=== PATIENT | female | born 1950 | race Caucasian/White ===

== ENCOUNTER 2021-08-17 14:10 | Emergency (ER) | payer OTHER, SELFPAY ==
[2021-08-17 14:37] VITALS: BP 136/92; PULSE 81; RESP 17; TEMP 36.6; O2SAT 98; BMI 26.6
--- NOTE | 2021-08-17 14:46 | DI.US.S_ITS ---
PROCEDURE: US PERIPH VENOUS LOW EXTREM RT INDICATIONS: RT LEG PAIN TECHNIQUE: Real-time imaging, as well as color and pulse Doppler interrogation, were performed of the lower extremity deep veins from the inguinal ligament to the popliteal fossa. COMPARISON: None. FINDINGS: The common femoral, femoral and popliteal veins are normally compressible, and free of intraluminal thrombus. Color and pulse Doppler demonstrate normal phasic intraluminal flow. There is normal augmentation response to distal compression maneuver. Additional, dedicated ultrasound scanning is performed at the area of palpable abnormality involving the right popliteal fossa. No focal ultrasound abnormalities are seen within this region. IMPRESSION: Negative for deep venous thrombosis. No ultrasound abnormalities can be seen within the palpable region within the right popliteal fossa. Dictated by: Kenneth Dumont M.D. on 08/17/2021 at 14:50 Approved by: Kenneth Dumont M.D. on 08/17/2021 at 14:50
--- NOTE | 2021-08-17 20:23 | ED.LOWEXIN ---
HPI - Extremity Injury (Lower) <DAYNA Ceballos - Last Filed: 08/17/21 20:30> General Chief Complaint: Extremity Injury, Lower Stated Complaint: RIGHT KNEEE SWELLING WARM ACHES KNOT Time Seen by Provider: 08/17/21 15:56 Source: patient Mode of arrival: Ambulatory History of Present Illness HPI Narrative: This is a 71-year-old female who is visiting [facility] from [place], and has been walking frequently and today complains of posterior right knee pain since she arrived and she is concerned about a possible DVT due to her long flight, and sensation of feeling like her right knee is swollen. She states that she does have a history of some degenerative joint disease, it has never slowed her down she says. She states that she had a meniscal surgery a few years ago and this knee pain has improved since. She states that most of her pain is in the posterior of her right knee, denies any tenderness to palpation of her right knee, states it is more painful when walking on it and it feels stiff and swollen. She denies any fever, chills, sensation changes, she denies any rash, or open wound. Patient denies any history of blood clots, she is not on any anticoagulants, she states that she is active and has been on her trip so far. Related Data Home Medications Medication Instructions Recorded Confirmed levothyroxine 125 mcg capsule 125 mcg PO 08/17/21 Previous Rx's Medication Instructions Recorded diclofenac sodium 1 % topical gel 2 g TOPICAL QID PRN #100 g 08/17/21 (Voltaren Arthritis Pain) meloxicam 7.5 mg tablet (Mobic) 7.5 mg PO DAILY PRN #20 tab 08/17/21 Allergies Allergy/AdvReac Type Severity Reaction Status Date / Time No Known Drug Allergies Allergy Verified 08/17/21 14:41 Review of Systems <DAYNA Ceballos - Last Filed: 08/17/21 20:30> Review of Systems Narrative: General: denies fever, chills, malaise, sweats, fatigue Head/Neck: denies headache, neck pain, dizziness Eyes: denies visual changes, eye pain Cardio: denies chest pain, palpitations, edema Respiratory: denies dyspnea, cough, orthopnea GI: denies abdominal pain, nausea, vomiting, or diarrhea : denies dysuria, hematuria, urinary retention, frequency or incontinence MSK: Endorses right knee pain and sensation of swollen joint, denies any muscle weakness or sensation changes distally she denies any history of blood clots Skin: denies rash, itching, skin lesions or other Neuro: denies numbness, tingling Patient History <DAYNA Ceballos - Last Filed: 08/17/21 20:30> Social History Smoking Status: Never smoker Smoking Status: Never smoker alcohol intake frequency: a few times a week Substance Use Type: marijuana Exam <DAYNA Ceballos - Last Filed: 08/17/21 20:30> Narrative Exam Narrative: Independently reviewed vitals signs and nursing notes. General: cooperative, comfortable, in no acute distress, well developed and well groomed Head: atraumatic, symmetrical facial expressions Neck: supple, atraumatic, without lymphadenopathy. Eyes: pupils equal round and reactive, EOMI, conjunctiva normal Nose: nares patent, no rhinorrhea Mouth/Throat: uvula midline, moist mucus membranes Cardiovascular: regular rate and rhythm, no peripheral edema, warm extremities Respiratory: normal effort, able to speak in complete sentences, no audible wheezing, stridor, or rales. No retractions or tachypnea. GI: abdomen soft, nontender to palpation, nondistended, no masses, no exquisite tenderness with exam, without guarding or rebound. MSK: moves all extremities, ambulatory w/steady gait, neurovascularly intact, no weakness, Rosenda's test negative on the right, positive wave test, no tenderness over patellar tendon, MCL, LCL, no open wound, erythema, or ecchymosis. No palpable Mcdowell cyst. Skin: brisk capillary refill, no rash, no erythema Neuro: normal speech and cognition, A&O x3, normal tone Psych: mental status is grossly normal, congruent mood, normal affect, pleasant and cooperative Initial Vital Signs Initial Vital Signs: Vital Signs Temperature 97.8 F 08/17/21 14:37 Pulse Rate 81 08/17/21 14:37 Respiratory Rate 17 08/17/21 14:37 Blood Pressure 136/92 H 08/17/21 14:37 Pulse Oximetry 98 08/17/21 14:37 <Lulu Martinez DO - Last Filed: 08/18/21 07:23> Initial Vital Signs Initial Vital Signs: Vital Signs Temperature 97.8 F 08/17/21 14:37 Pulse Rate 81 08/17/21 14:37 Respiratory Rate 17 08/17/21 14:37 Blood Pressure 136/92 H 08/17/21 14:37 Pulse Oximetry 98 08/17/21 14:37 Course <DAYNA Ceballos - Last Filed: 08/17/21 20:30> Orders Ordered: ED Orders 08/17/21 14:46 US periph venous low extrem rt Stat Vital Signs Vital signs: Vital Signs - 8 hr 08/17/21 14:37 Temperature 97.8 F Pulse Rate 81 Respiratory Rate 17 Blood Pressure 136/92 H Pulse Oximetry 98 <Lulu Martinez DO - Last Filed: 08/18/21 07:23> Orders Ordered: ED Orders 08/17/21 14:46 US periph venous low extrem rt Stat Vital Signs Vital signs: Vital Signs - 8 hr 08/17/21 14:37 Temperature 97.8 F Pulse Rate 81 Respiratory Rate 17 Blood Pressure 136/92 H Pulse Oximetry 98 MDM - Extremity Injury (Lower) <DAYNA Ceballos - Last Filed: 08/17/21 20:30> Imaging Data US - DVT: Radiologist's Impression: PROCEDURE:? US PERIPH VENOUS LOW EXTREM RT ? INDICATIONS:? RT LEG PAIN ? TECHNIQUE:? Real-time imaging, as well as color and pulse Doppler interrogation, were performed of the lower extremity deep veins from the inguinal ligament to the popliteal fossa.? ? COMPARISON:? None. ? FINDINGS:? The common femoral, femoral and popliteal veins are normally compressible, and free of intraluminal thrombus.? Color and pulse Doppler demonstrate normal phasic intraluminal flow.? There is normal augmentation response to distal compression maneuver. ? ? Additional, dedicated ultrasound scanning is performed at the area of palpable abnormality involving the right popliteal fossa.? No focal ultrasound abnormalities are seen within this region.? IMPRESSION:? ? Negative for deep venous thrombosis. ? No ultrasound abnormalities can be seen within the palpable region within the right popliteal fossa.? ? Dictated by: Kenneth Dumont M.D. on 08/17/2021 at 14:50 ? ? Approved by: Kenneth Dumont M.D. on 08/17/2021 at 14:50 ? MDM Narrative Medical decision making narrative: This is a 71-year-old female presents to the emergency department with right knee pain and swelling with concern for DVT due to patient's long travel time from [place] to [place]. Patient's ultrasound DVT of her right lower extremity is negative for DVT, no ultrasound abnormalities were visible within the palpable region within the right popliteal fossa, patient does have a history of degenerative joint disease, she has positive wave test, negative Rosenda, no tenderness over LCL, MCL, or patellar tendon. No trauma, encouraged patient to use topical Voltaren gel, Tylenol, and NSAIDs as tolerated for her right knee pain. This is most likely osteoarthritis/degenerative joint disease, she has been walking daily and likely more than her baseline. She denies any sensation changes distal to her right knee, she is ambulatory, states she wanted to rule out any dangerous cause to her pain and is able to tolerate arthritis without any difficulty. She was given strict return precautions, a prescription for topical Voltaren gel andMobic. Patient is encouraged to use ice, rest, elevation, light activity for this type of pain. Patient is appropriate and amenable to discharge home. Vital signs are stable on repeat examination is unremarkable. Patient has been informed of results. Patient has been given strict return to ER precautions for any new or worsening symptoms. Patient understands to follow up closely with outpatient providers as instructed. Patient understands plan and agrees to discharge home. All questions and concerns answered at this time. Discharge Plan Departure Patient Disposition: Home Clinical Impression: Acute knee pain Qualifiers: Laterality: right Qualified Code(s): M25.561 - Pain in right knee Instructions: Osteoarthritis, DI for Knee Effusion, How to Apply an Elastic Wrap on Knee Activity Restrictions/Additional Instructions: *You have been diagnosed with right knee pain likely from degenerative changes, your previous meniscal tear, and walking which likely flared it up. There is no DVT, or Mcdowell cyst visible on your ultrasound. I have prescribed for you diclofenac topical gel, you may take Tylenol with this, I have also sent over Mobic which is a strong anti-inflammatory and is good for arthritis. Please do not take any ibuprofen with this and take something to coat your stomach when you do take it. Please enjoy walking, use an Julio Cesar wrap if it feels unstable, ice it, and enjoy gentle activity while you are here in town. I hope you have a wonderful visit, if you notice weakness, or worsening of your pain beyond the methods of control, please return for another evaluation. Thank you for trusting us and for your patience. *What to do: *Please continue to take your regular medications as directed. [ x] New medication prescriptions sent to your pharmacy: [[facility] ] [ ] New medication written as a paper prescription [ ] No new medications given *Please follow up with your primary care provider in 2-3 days, call for an appointment. Let them know you were seen in the Emergency Department and that we asked that you be seen for follow-up. We will electronically transmit a record of today's note if your PCP is in our system *If you do not have a primary care provider please contact [phone] to establish care with one of the [facility] primary care providers. *Return to Emergency Department if you should have any new, worsening or concerning symptoms, such as [fever greater than 101F, chills, worsening pain, persistent vomiting or other bothersome symptoms] Prescriptions: New diclofenac sodium [Voltaren Arthritis Pain] 1 % gel 2 g topical QID PRN (Reason: knee pain) Qty: 100 0RF Rx Instructions: apply to single elbow, wrist or hand; for hand includes palm/fingers/back of hand meloxicam [Mobic] 7.5 mg tablet 7.5 mg PO DAILY PRN (Reason: pain) Qty: 20 0RF No Action levothyroxine 125 mcg capsule 125 mcg PO 0RF Referrals: [facility] [Provider Group] (if this escalates while you are here) <Lulu Martinez DO - Last Filed: 08/18/21 07:23> Cosign ED Attending Rafaelature Attestation: I was immediately available in the department for consultation. Documentation has been reviewed. I agree with assessment and plan.
== END 2021-08-17 18:11 | disposition home or self-care (01) ==
PROVIDERS: Emergency Provider Nurse Practitioner Critical Care Medicine
DX: M25.561 Pain in right knee (principal)
CPT/HCPCS: 93971; 99281; 99283